=== PATIENT | female | born 1940 | race Caucasian/White ===

== ENCOUNTER 2023-01-01 06:30 | Day surgery (SDC) | payer MEDICARE ==
[2023-01-01] MEDS ORDERED: Marcaine Mpf 0.5% Vial 30 Ml ONE (07:11)
[2023-01-01] MEDS ORDERED: Xylocaine 1% Vial 30 ML PF IJ ONE (07:12)
[2023-01-01 07:56] VITALS: PULSE 60; RESP 18
[2023-01-01] MEDS ORDERED: Sodium Chloride 0.9% 1000 ML 1,000 ML ONE (07:58)
[2023-01-01] MEDS ORDERED: Sodium Chloride 0.9% 1000 ML 1,000 ML IV SCH (08:00)
[2023-01-01 08:16] LABS: Hematocrit 32.5 % (35-47); Hemoglobin 10.2 g/dL (12.0-16.0); Mean Cell Volume 87.1 fL (78-100); Mean Corpuscular Hemoglobin 27.3 pg (26-32); Mean Corpuscular Hgb Concent. 31.4 g/dL (32-36); Mean Platelet Volume 9.4 fL (7.5-11.0); Platelet Count 190 x10^3/uL (150-450); Red Blood Count 3.73 x10^6/uL (4.1-5.4); Red Cell Distribution Width 17.2 % (11.5-14.0); White Blood Count 10.9 x10^3/uL (4.0-10.5)
[2023-01-01 08:29] LABS: ALBUMIN 4.4 g/dL (3.5-5.0); ALKALINE PHOSPHATASE 81 U/L (38-126); ANION GAP 19.7 MEQ/L (5-15); BLOOD UREA NITROGEN 29 mg/dL (7-17); CHLORIDE 93 mmol/L (98-107); Calcium 9.2 mg/dL (8.4-10.2); Carbon Dioxide 23 mmol/L (22-30); Creatinine 1 0.89 mg/dL (0.52-1.04); EST GLOMERULAR FILTRATION RATE > 60.0 ML/MIN; Glucose 190 mg/dL (74-106); Potassium 4.1 mmol/L (3.5-5.1); SGOT/AST 25 U/L (14-36); SGPT/ALT 18 U/L (0-35); SODIUM 132 mmol/L (137-145)
[2023-01-01 08:31] LABS: INR 1.39 (0.8-3.0); PROTIME 14.8 SECONDS (9.4-12.5); PTT 56.4 SECONDS (25.1-36.5)
[2023-01-01] MEDS ORDERED: CEFAZOLIN 2 GM-D5W BAG** 2 GM/50 ML ML IV ONE (08:58)
[2023-01-01] MEDS ORDERED: CEFAZOLIN 2 GM-D5W BAG** 2 GM/50 ML ML IV SCH (09:00)
[2023-01-01 11:21] VITALS: O2SAT 96
[2023-01-01 11:24] VITALS: BP 152/55; TEMP 98.5
--- NOTE | 2023-01-01 11:43 | XRAY ---
Indication: Amputation right 5th toe. Intraoperative fluoroscopy provided for 5 seconds. 3 digital spot images submitted for interpretation demonstrates total amputation 5th toe. Correlate with intraoperative findings/report.
--- NOTE | 2023-01-01 14:29 | XRAY ---
5 seconds of fluoroscopy was used in surgery for an amputation of the right 5th toe.
--- NOTE | 2023-01-01 15:06 | OP ---
SURGERY DATE/TIME: 01/01/2023 0951 PREOPERATIVE DIAGNOSES: 1) Chronic osteomyelitis right fifth digit. 2) Pain right fifth of digit right foot. 3) Diabetic foot ulcer chronic. POSTOPERATIVE DIAGNOSES: 1) Chronic osteomyelitis right fifth digit. 2) Pain right fifth of digit right foot. 3) Diabetic foot ulcer chronic. PROCEDURES: Amputation of fifth digit right foot. SURGEON: Mitch Moore DPM. ABSTRACTER: None. ANESTHESIA: Local. HEMOSTASIS: Pressure dressing. ESTIMATED BLOOD LOSS: Approximately 5 cc. MATERIALS: 4-0 Monocryl, 3-0 Nylon. INJECTABLES: 20 cc of a 1:1 mixture of 1% lidocaine plain and 0.5% bupivacaine plain injected in a mini-Rios block-type fashion. INDICATION FOR SURGERY: Samantha is a very pleasant 82-year-old female very well known to my service for a diabetic foot infection and osteomyelitis. The patient was seen due to the ulceration to the inner aspect of the web space of the right foot as a result of the foot infection. MRI was obtained demonstrating some indications of osteomyelitis. Options were discussed and initially opted for IV antibiotics for an extended period of time. The patient did have some complications as a result of her medical history that resulted in interruption of her getting her PICC line and IV antibiotics for longer than five days. The patient was lost to follow up for a month and was incapacitated at that time. On follow up we decided on proceeding with the same IV antibiotics. However the patient did end up in the hospital once more as a result of it due to infection and nothing was done at that facility for the osteomyelitis. At this time the patient has had some worsening pain as a result of the osteomyelitis. Given the patient has a pacemaker, they proceeded with a bone scan which confirmed our suspicions in regards to the osteomyelitis of the fifth digit and opted to proceed with amputation. Doppler's were obtained prior to the study which demonstrated subjectively monophasic pulse to the posterior tibial and biphasic pulse to the dorsalis pedis. As a result following the amputation it has been scheduled for her to undergo an additional arterial ultrasound for objective measuring of this and if necessary referral to a vascular surgeon to increase soft tissue healing. At this time all risks, complications and benefits of surgical intervention were discussed with the patient including but not limited to infection, hematoma, seroma, possibility of delayed wound healing, nonwound healing and possible need for surgical intervention at a later date. No guarantees were provided as to the outcome of surgical intervention. It is with that we decided to proceed. DESCRIPTION OF PROCEDURE AND FINDINGS: The patient is brought into the OR and placed on the OR table in the supine position. At this time local anesthetic with mini-Rios block under aseptic technique without any complication. The right lower extremity was prepped and draped in the typical sterile fashion and lowered on the surgical field. Following this a lateral racket incision was made by the 10 blade down lateral aspect of the fifth metatarsal. The disarticulation took place at the metatarsophalangeal joint. Following this copious amounts of sterile saline with Pulsavac used to cleanse the surgical site. A total of 3 liters were used. Following this 4-0 Monocryl was utilized to coapt the subcutaneous edges in interrupted buried-type fashion and 4-0 Nylon in a horizontal mattress-type fashion was utilized to coapt the skin edges in everting-type fashion. Following this dressing consisting of Betadine, Adaptic, 4x4, Kerlix and JANE with moderate compression was applied to the right lower extremity. The patient was then returned to the postoperative anesthesia care unit with vital signs stable and vascular status intact. The patient handled the anesthesia as well as the procedure without significant complication. Postoperative orders as indicated in the patient's discharge chart.
== END 2023-01-01 11:30 | disposition home or self-care (01) ==
LOC: SDC 06:30 → EDSTATUS 12:37
PROVIDERS: ATTEND Podiatrist Foot & Ankle Surgery
DX: M86.671 Other chronic osteomyelitis, right ankle and foot (principal); M79.671 Pain in right foot; E11.621 Type 2 diabetes mellitus with foot ulcer
CPT/HCPCS: 28820; 36415; 73630; 76000; 80053; 82947; 85027; 85610; 85730; J0690; J2001

== ENCOUNTER 2023-07-07 11:44 | Emergency (ER) | payer MEDICARE ==
--- NOTE | 2023-07-07 12:14 | ERPHSYRPT ---
- History of Present Illness Time Seen by Provider: 07/07/23 12:14 Source: patient, family Exam Limitations: no limitations Physician History: This is an 82-year-old wheelchair-bound white female patient who was traveling down an exit ramp when she suddenly fell forward out of her wheelchair hitting both knees anteriorly and her forehead. She did not lose consciousness. However, family thinks maybe she was a little dazed and confused. Patient is on anticoagulation therapy. There is an abrasion to the right forehead. Patient arrives to the emergency department awake alert and oriented. Patient has a history of peripheral neuropathy, coronary artery disease (cardiac stent and pacemaker) history of arrhythmia, hyperlipidemia and hypertension. Occurred: just prior to arrival Reason for Fall: fell from height Injuries/Pain Location: head, lower extremity Loss of Consciousness: no loss of consciousness (Bilateral anterior knees), dazed Quality: aching (Bilateral anterior knees) Severity of Pain-Max: mild Severity of Pain-Current: mild Modifying Factors: Improves With: movement Associated Symptoms (Fall): denies symptoms Allergies/Adverse Reactions: [id number] Reductase Inhibitor Allergy (Verified 07/07/23 12:17) Muscle Aches Sulfa (Sulfonamide Antibiotics) Allergy (Verified 07/07/23 12:17) Hives Home Medications: Ascorbic Acid [Vitamin C] 500 mg PO DAILY 12/31/22 [History] Cholecalciferol (Vitamin D3) [Vitamin D3] 1,000 unit PO DAILY 12/31/22 [History] Cranberry Fruit Extract [Cranberry Concentrate] 500 mg PO DAILY 12/31/22 [History] Dorzolamide HCl/Pf [Dorzolamide 2% Eye Drop] 1 drop OP BID 12/31/22 [History] Ferrous Sulfate [Slow Fe] 142 mg PO DAILY 12/31/22 [History] Fish Oil/Borage/Flax/Om3,6,9 1 [Triple [place] Complex 3-6-9] 400 mg PO DAILY 12/31/22 [History] Furosemide 40 mg PO BID 12/31/22 [History] Gabapentin 600 mg PO BID 12/31/22 [History] Insulin Glargine,Hum.rec.anlog [Lantus] 22 unit SQ BID 12/31/22 [History] Insulin Lispro [Humalog] 6 unit SQ BID 12/31/22 [History] Latanoprost 2.5 ml OP DAILY 12/31/22 [History] Magnesium Oxide [Magnesium] 400 mg PO DAILY 12/31/22 [History] Metformin HCl [Metformin ER Gastric] 1,000 mg PO DAILY 12/31/22 [History] Multivitamin 1 each PO DAILY 12/31/22 [History] Nitroglycerin 0.4 mg SL Q5MIN PRN MR X 3 PRN 12/31/22 [History] Oxybutynin Chloride [Oxybutynin Chloride ER] 15 mg PO DAILY 12/31/22 [History] Potassium Citrate [Potassium] 99 mg PO DAILY 12/31/22 [History] Sitagliptin Phosphate [Januvia] 25 mg PO DAILY 12/31/22 [History] Vit C/E/Zn/Coppr/Lutein/Zeaxan [Preservision Areds 2 Chew Tab] 1 each PO DAILY 12/31/22 [History] Travel Risk - International Travel Have you traveled outside of the country in past 3 weeks: No - Coronavirus Screening Are you exhibiting any of the following symptoms?: No Close contact with a COVID-19 positive Pt in past 14-21 Days: No - Review of Systems Constitutional: No Symptoms Eyes: No Symptoms Ears, Nose, & Throat: No Symptoms Respiratory: No Symptoms Cardiac: No Symptoms Abdominal/Gastrointestinal: No Symptoms Genitourinary Symptoms: No Symptoms Musculoskeletal: Fall (Bilateral anterior knees from the height of), Injury Skin: Other ( wheelchair patient was sitting in abrasion right forehead) Neurological: No Symptoms Psychological: No Symptoms Endocrine: No Symptoms Hematologic/Lymphatic: No Symptoms Immunological/Allergic: No Symptoms All Other Systems: Reviewed and Negative - Past Medical History Pertinent Past Medical History: Yes Neurological History: Peripheral Neuropathy ENT History: Cataracts, Glaucoma, Macular Degeneration Cardiac History: Arrhythmia, High Cholesterol, Hypertension, Myocardial Infarction ([place]) Respiratory History: No Pertinent History Endocrine Medical History: Diabetes Type II Musculoskeletal History: No Pertinent History GI Medical History: No Pertinent History History: Other Psycho-Social History: No Pertinent History Female Reproductive Disorders: No Pertinent History - Past Surgical History Past Surgical History: Yes Neuro Surgical History: No Pertinent History Cardiac: Cardiac Catheterization, Cardiac Stent, Pacemaker Respiratory: No Pertinent History Gastrointestinal: Cholecystectomy Genitourinary: No Pertinent History Musculoskeletal: Joint Replacement Female Surgical History: Dilation & Curettage Other Surgical History: right knee replacement - Social History Smoking Status: Never smoker Exposure to second hand smoke: No Drug Use: none - Nursing Vital Signs Nursing Vital Signs: Initial Vital Signs Temperature 97.2 F 07/07/23 12:17 Pulse Rate 62 07/07/23 12:17 Respiratory Rate 18 07/07/23 12:17 Blood Pressure 193/66 07/07/23 12:17 O2 Sat by Pulse Oximetry 94 L 07/07/23 12:17 Pain Scale Pain Intensity 8 - Eliezer Coma Score Best Eye Response ([place]): (4) open spontaneously Best Verbal Response (Eliezer): (5) oriented Best Motor Response (Eliezer): (6) obeys commands [place] Total: 15 - Physical Exam General Appearance: no apparent distress, alert, anxiety Head Injury: tenderness Eye Exam: PERRL/EOMI, eyes nml inspection (Abrasion site right forehead) ENT Exam: airway nml, No evidence of ENT injury, No dental injury Neck Exam: supple, trachea midline, full range of motion, normal alignment, normal inspection Respiratory/Chest Exam: normal breath sounds, No chest tenderness, No respiratory distress, No ecchymosis, No crepitus Cardiovascular Exam: normal heart sounds, regular rate/rhythm Gastrointestinal Exam: soft, normal bowel sounds, No tenderness Rectal Exam: not done Back Exam: normal inspection, normal range of motion, No CVA tenderness, No vertebral tenderness Extremity Exam: normal range of motion, pelvis stable, tenderness (Anterior bilateral knees), No deformities Neurologic Exam: alert, oriented x 3, cooperative, configuration management architect II-XII nml as tested, normal mood/affect Skin Exam: abrasion SpO2 Interpretation: normal (Right side of forehead) O2 Delivery: Room Air - Course Nursing assessment & vital signs reviewed: Yes Ordered Tests: Active Orders 24 hr Category Date Time Status HEAD WITHOUT CONTRAST [CT] Stat Exams 07/07/23 13:02 Completed KNEE (1 OR 2 VIEW) Stat Exams 07/07/23 13:02 Completed KNEE (1 OR 2 VIEW) Stat Exams 07/07/23 13:03 Completed - Progress Progress: unchanged Progress Note: 07/07/23 13:51 This patient's medical issue is 1 of low to moderate complexity. Level of complexity in the workup performed is based on review of the patient's past medical history, review the patient's medication list, review the patient drug allergy list, history present illness and physical findings on examination. This patient's workup includes CT scan of the head without contrast as well as x-ray of both knees. 07/07/23 14:34 All x-rays below, were interpreted by the radiologist and I reviewed the impression: CT scan of the head shows a right frontal scalp hematoma with no underlying fracture or acute intracranial abnormalities. X-ray of the left knee shows degenerative changes without acute fracture or dislocation. X-ray of the right knee shows no acute fracture or dislocation Counseled pt/family regarding: diagnosis, need for follow-up, rad results Medical Desision Making - Independent Historian Additional History obtained from: Child - Diagnostic Testing Diagnostic test were ordered, analyzed, and reviewed by me: Yes Radiological Interpretation: Reviewed by me, Teleradiologist Report - Risk of complications Minimal Risk: Minimal risk of morbidity - Departure Departure Disposition: Home Clinical Impression: Head injury without skull fracture, Abrasion of forehead, Traumatic hematoma of forehead, Bilateral anterior knee pain Condition: Stable Critical Care Time: No Referrals: JOHN VICENTE PLATE [employer] POLISHER [Primary Care Provider] - Follow up/PCP as directed Additional Instructions: Hold your blood thinning medicine for 24 hours. Ice pack to all tender areas 3 times a day for the next 48 hours. Use Tylenol for pain control. Keep all abrasion sites clean daily with soap and water and may apply antibiotic ointment of choice twice a day. Call your primary care provider today, 07/07/2023, to make arranges for follow-up appointment for further evaluation and management.
[2023-07-07 12:29] VITALS: RESP 18; TEMP 97.2; O2SAT 94
[2023-07-07 14:01] VITALS: BP 174/74; PULSE 87
--- NOTE | 2023-07-07 14:04 | XRAY ---
Indication: Right frontal head injury following fall. Blood thinner therapy. Multiple contiguous axial images obtained through the head without contrast. Comparison: None Age-appropriate global atrophy. No acute intracranial hemorrhage, abnormal extra-axial fluid collection, or mass effect. Fourth ventricle is midline without hydrocephalus. Small right frontal scalp hematoma. Bony calvarium intact with incidental hyperostosis frontalis interna. Visualized paranasal sinuses and mastoid air cells are clear. Impression: Right frontal scalp hematoma. No underlying fracture or acute intracranial abnormalities.
--- NOTE | 2023-07-07 14:20 | XRAY ---
Indication: Pain following fall. Comparison: None AP/lateral left knee demonstrates osteopenia, minimal/mild tricompartmental degenerative changes, tiny nonspecific effusion, and moderate scattered vascular calcifications with incompletely visualized distal femoral stent. No other bony, articular, or soft tissue abnormalities.
--- NOTE | 2023-07-07 14:22 | XRAY ---
Indication: Pain following fall. Comparison: None AP/crosstable lateral right knee demonstrates total knee arthroplasty with mildly displaced supracondylar transverse fracture. Elsewhere osteopenia and moderate scattered vascular calcifications with distal femoral stent. No other bony, articular, or soft tissue abnormalities.
== END 2023-07-07 15:38 | disposition home or self-care (01) ==
LOC: ED 11:44
DX: S00.81XA Abrasion of other part of head, initial encounter (principal); S72.451A Displaced supracondylar fracture without intracondylar extension of lower end of right femur, initial encounter for closed fracture; M25.562 Pain in left knee; M25.561 Pain in right knee; W05.0XXA Fall from non-moving wheelchair, initial encounter; E11.9 Type 2 diabetes mellitus without complications; I10 Essential (primary) hypertension; Z79.899 Other long term (current) drug therapy; Z20.828 Contact with and (suspected) exposure to other viral communicable diseases
CPT/HCPCS: 70450; 73560; 99283

== ENCOUNTER 2023-07-07 19:36 | Observation (INO) | payer MEDICARE ==
--- NOTE | 2023-07-07 20:53 | ERPHSYRPT ---
- History of Present Illness Time Seen by Provider: 07/07/23 19:50 Source: patient Exam Limitations: no limitations Patient Subjective Stated Complaint: pt states she fell out of her wheelchair going down her ramp. c/o pain in bilat knees. states she was called and told to return to er for fx seen on her xray Triage Nursing Assessment: pt alert and oriented, answers questions approp. pt back to room per wheelchair and was assist of 3 from wheelchair to stretcher- pt total nwb and unable to bend knees. pt with depends on soiled with urine and stool. pt cleaned and multiple open areas noted in tunde area. open areas under abd fold- red and excoriated. abrasions to bilat knees. drs to lt foot- pt states diabetic foot ulcer. Physician History: 82-year-old female presents to emergency department. Patient was seen in our ED 2 days just prior to this visit. Patient had fallen out of her wheelchair and injured her head and knees. X-ray of the right knee revealed a supracondylar fracture. After consultation with orthopedic surgery it was determined that patient would be best served as an inpatient. Patient was asked to return back to our ED. She has done so per our request. Patient has no other complaints. Pain is well-controlled at this time. We consulted with Dr. Mckeon orthopedic surgeon on-call. He advised patient to be admitted to hospitalist and he will see patient as a consult. Plan of care discussed with patient. She agrees to admission to [facility] for further evaluation and treatment. Portions of this note were created with voice recognition technology. There may be grammatical, spelling, punctuation or sound alike errors Timing/Duration: today Severity: moderate Modifying Factors: Improves With: nothing Associated Symptoms: denies symptoms Allergies/Adverse Reactions: [id number] Reductase Inhibitor Allergy (Verified 07/07/23 20:19) Muscle Aches Sulfa (Sulfonamide Antibiotics) Allergy (Verified 07/07/23 20:19) Hives Home Medications: Ascorbic Acid [Vitamin C] 500 mg PO DAILY 12/31/22 [History] Cholecalciferol (Vitamin D3) [Vitamin D3] 1,000 unit PO DAILY 12/31/22 [History] Cranberry Fruit Extract [Cranberry Concentrate] 500 mg PO DAILY 12/31/22 [History] Dorzolamide HCl/Pf [Dorzolamide 2% Eye Drop] 1 drop OP BID 12/31/22 [History] Ferrous Sulfate [Slow Fe] 142 mg PO DAILY 12/31/22 [History] Fish Oil/Borage/Flax/Om3,6,9 1 [Triple [place] Complex 3-6-9] 400 mg PO DAILY 12/31/22 [History] Furosemide 40 mg PO BID 12/31/22 [History] Gabapentin 600 mg PO BID 12/31/22 [History] Insulin Glargine,Hum.rec.anlog [Lantus] 22 unit SQ BID 12/31/22 [History] Insulin Lispro [Humalog] 6 unit SQ BID 12/31/22 [History] Latanoprost 2.5 ml OP DAILY 12/31/22 [History] Magnesium Oxide [Magnesium] 400 mg PO DAILY 12/31/22 [History] Metformin HCl [Metformin ER Gastric] 1,000 mg PO DAILY 12/31/22 [History] Multivitamin 1 each PO DAILY 12/31/22 [History] Nitroglycerin 0.4 mg SL Q5MIN PRN MR X 3 PRN 12/31/22 [History] Oxybutynin Chloride [Oxybutynin Chloride ER] 15 mg PO DAILY 12/31/22 [History] Potassium Citrate [Potassium] 99 mg PO DAILY 12/31/22 [History] Sitagliptin Phosphate [Januvia] 25 mg PO DAILY 12/31/22 [History] Vit C/E/Zn/Coppr/Lutein/Zeaxan [Preservision Areds 2 Chew Tab] 1 each PO DAILY 12/31/22 [History] Hx Influenza Vaccination/Date Given: Yes Travel Risk - International Travel Have you traveled outside of the country in past 3 weeks: No - Coronavirus Screening Are you exhibiting any of the following symptoms?: No Close contact with a COVID-19 positive Pt in past 14-21 Days: No - Vaccine Status Have you recieved a Covid-19 vaccination: Yes Manager Salt: Moderna - Vaccination Dates Date of 2cond Vaccination (if applicable): 2020 - Review of Systems Constitutional: No Symptoms, No Fever, No Chills Eyes: No Symptoms Ears, Nose, & Throat: No Symptoms Respiratory: No Symptoms, No Cough, No Dyspnea Cardiac: No Symptoms, No Chest Pain, No Edema, No Syncope Abdominal/Gastrointestinal: No Symptoms, No Abdominal Pain, No Nausea, No Vomiting, No Diarrhea Genitourinary Symptoms: No Symptoms, No Dysuria Musculoskeletal: No Symptoms, No Back Pain, No Neck Pain Skin: No Symptoms, No Rash Neurological: No Symptoms, No Dizziness, No Focal Weakness, No Sensory Changes Psychological: No Symptoms Endocrine: No Symptoms Hematologic/Lymphatic: No Symptoms Immunological/Allergic: No Symptoms All Other Systems: Reviewed and Negative - Past Medical History Pertinent Past Medical History: Yes Neurological History: Peripheral Neuropathy ENT History: Cataracts, Glaucoma, Macular Degeneration Cardiac History: Arrhythmia, High Cholesterol, Hypertension, Myocardial Infarction ([place]) Respiratory History: No Pertinent History Endocrine Medical History: Diabetes Type II Musculoskeletal History: No Pertinent History GI Medical History: No Pertinent History History: Other Psycho-Social History: No Pertinent History Female Reproductive Disorders: No Pertinent History Other Medical History: afib - Past Surgical History Past Surgical History: Yes Neuro Surgical History: No Pertinent History Cardiac: Cardiac Catheterization, Cardiac Stent, Pacemaker Respiratory: No Pertinent History Gastrointestinal: Cholecystectomy Genitourinary: No Pertinent History Musculoskeletal: Joint Replacement Female Surgical History: Dilation & Curettage Other Surgical History: right knee replacement. return to er for fx - Social History Smoking Status: Never smoker Exposure to second hand smoke: No Drug Use: none Patient Lives Alone: No (lives with daughter) - Nursing Vital Signs Nursing Vital Signs: Initial Vital Signs Temperature 99.0 F 07/07/23 19:41 Pulse Rate 60 07/07/23 19:41 Respiratory Rate 16 07/07/23 19:41 Blood Pressure 180/76 07/07/23 19:41 O2 Sat by Pulse Oximetry 96 07/07/23 19:41 Pain Scale Pain Intensity 7 - Physical Exam General Appearance: no apparent distress, alert Eye Exam: PERRL/EOMI, eyes nml inspection Ears, Nose, Throat Exam: normal ENT inspection, moist mucous membranes Neck Exam: normal inspection, non-tender, supple, full range of motion Respiratory Exam: normal breath sounds, lungs clear, airway intact, No respiratory distress Cardiovascular Exam: regular rate/rhythm, normal heart sounds, normal peripheral pulses Gastrointestinal/Abdomen Exam: soft, normal bowel sounds, No tenderness, No mass Back Exam: normal inspection, normal range of motion, No CVA tenderness, No vertebral tenderness Extremity Exam: normal inspection, normal range of motion, pelvis stable Neurologic Exam: alert, oriented x 3, cooperative, normal mood/affect, sensation nml, No motor deficits Skin Exam: normal color, warm, dry, No rash Lymphatic Exam: No adenopathy SpO2 Interpretation: normal SpO2: 96 O2 Delivery: Room Air - Course Nursing assessment & vital signs reviewed: Yes Ordered Tests: Active Orders 24 hr Category Date Time Status CBC W DIFF Stat Lab 07/07/23 20:36 Ordered CMP Stat Lab 07/07/23 20:36 Ordered UA W/RFX UR CULTURE Stat Lab 07/07/23 20:37 Ordered Transfer Order Routine Transfer 07/07/23 Ordered - Progress Progress: improved Progress Note: 82-year-old female fell earlier in the day was seen in our ED and subsequently discharged. Patient was asked to return after consultation with orthopedic surgeon. Upon arrival to our ED patient was resting comfortably. No active pain. We placed patient's involved right knee in a knee immobilizer. Patient is to remain nonweightbearing. We called Dr. Mckeon orthopedic surgeon who advised admission to medicine service and he would see patient as a consultation. I spoke to Dr. Hodge at 8:34 PM. He requested we obtain basic labs and excepted the admission. Plan of care discussed with patient. She agrees to admission to [facility] for further evaluation and treatment. We attempted to apply a knee immobilizer however due to the degree of contracture at patient's involved knee applying a knee immobilizer was not possible. Portions of this note were created with voice recognition technology. There may be grammatical, spelling, punctuation or sound alike errors Complexity problem addressed is moderate acute complicated No critical care time Complexity of data reviewed and analyzed is extensive. Dr. Freedman independently reviewed the x-ray of the right involved knee. There is a supracondylar fracture as described. Based on patient's physical exam and the x-ray finding we decided to place patient in a right knee immobilizer. Management discussed with orthopedic surgery Dr. Mckeon and hospitalist Dr. Samano Risk of complication and a risk of morbidity/mortality of patient management is high. Patient requires hospitalization for further evaluation and treatment. Vital stable. Time spent admit patient is approximately 20 minutes. Plan of care established for shared decision making. No social determinants of health present impede follow-up. 07/07/23 20:47 Counseled pt/family regarding: lab results, diagnosis, rad results - Departure Departure Disposition: Observation Clinical Impression: Fall, Supracondylar fracture of femur Condition: Stable Critical Care Time: No Referrals: JOHN VICENTE, DRYWALL STRIPPER [Primary Care Provider] - Follow up/PCP as directed
[2023-07-07 21:18] LABS: BASOPHIL % 0.8 % (0.0-0.4); Basophil (Absolute #) 0.08 x10^3/uL (0-0.4); Eosinophil % 1.1 % (0.00-5.0); Eosinophil (Absolute #) 0.11 x10^3/uL (0-0.5); Hematocrit 30.3 % (35-47); Hemoglobin 9.6 g/dL (12.0-16.0); IMMATURE GRAN # 0.06 x10^3u/L (0.00-0.03); IMMATURE GRAN % 0.6 % (0.00-0.4); Lymphocyte (Absolute #) 1.92 x10^3/uL (1.0-4.6); Lymphocytes % 19.9 % (24.0-44.0); Mean Cell Volume 94.1 fL (78-100); Mean Corpuscular Hemoglobin 29.8 pg (26-32); Mean Corpuscular Hgb Concent. 31.7 g/dL (32-36); Mean Platelet Volume 9.4 fL (7.5-11.0); Monocytes % 7.2 % (0.0-12.0); Neutrophil % 70.4 % (36.0-66.0); Platelet Count 280 x10^3/uL (150-450); Red Blood Count 3.22 x10^6/uL (4.1-5.4); Red Cell Distribution Width 15.3 % (11.5-14.0); White Blood Count 9.7 x10^3/uL (4.0-10.5)
[2023-07-07 21:34] LABS: ALBUMIN 4.4 g/dL (3.5-5.0); BILIRUBIN,TOTAL 0.6 mg/dL (0.2-1.3); Calcium 9.5 mg/dL (8.4-10.2); Creatinine 1 0.92 mg/dL (0.52-1.04); EST GLOMERULAR FILTRATION RATE 62.2 ML/MIN; Potassium 4.8 mmol/L (3.5-5.1); Total Protein 7.9 g/dL (6.3-8.2)
[2023-07-07] MEDS ORDERED: NYSTOP POWDER 15 GM ONE (22:42)
[2023-07-07] MEDS ORDERED: TYLENOL 325 MG PO PRN (22:54)
[2023-07-07] MEDS ORDERED: HUMALOG SQ PRN (22:54)
[2023-07-07] MEDS: NYSTOP POWDER 15 GM TP SCH (23:00)
--- NOTE | 2023-07-07 23:05 | PCM.HP ---
History of Present Illness - Chief Complaint Chief Complaint: Fall, supracondylar fracture Date: 07/07/23 History of Present Illness: 82-year-old woman with a history of type 2 diabetes, A-fib, CHF, and chronically wheelchair-bound, who presents after fall. She was in her wheelchair going down a ramp when she fell face first onto her face and both knees, causing scrapes to all 3 sites. She never lost consciousness, and has only minimal soreness over her head, although both knees are painful. She has a history of a right knee replacement. She was initially seen in the ED, and was sent home, but read of the right knee x-ray showed a supracondylar fracture, and orthopedics recommended admission to the hospital for evaluation for likely surgery. Of note, patient is on Xarelto for her A-fib, with her last dose taken on July 05 in the evening. She has some mild confusion over the details of her care, which she says is chronic and her daughter helps her remember some of the details. However, otherwise she is at her baseline mental status, alert, orient ed, able to answer questions. She still has pain when trying to flex or extend her knees on both sides. - Review of Systems Constitutional: No Symptoms Respiratory: No Cough, No Short Of Breath Cardiac: No Chest Pain Neurological: No Dizziness, No Focal Weakness, No Gait Changes, No Headache All Other Systems: Reviewed and Negative Medications & Allergies Home Medications: Home Medication List Cholecalciferol (Vitamin D3) [Vitamin D3] 1,000 unit PO DAILY 12/31/22 [History Confirmed 07/07/23] Furosemide 40 mg PO BID 12/31/22 [History Confirmed 07/07/23] Gabapentin 300 mg PO DAILY 12/31/22 [History Confirmed 07/07/23] Insulin Glargine,Hum.rec.anlog [Lantus] 22 unit SQ BID 12/31/22 [History Confirmed 01/01/23] Insulin Lispro [Humalog] 6 unit SQ BID 12/31/22 [History Confirmed 01/01/23] Latanoprost 2.5 ml OP DAILY 12/31/22 [History Confirmed 01/01/23] Magnesium Oxide [Magnesium] 400 mg PO DAILY 12/31/22 [History Confirmed 07/07/23] Metformin HCl [Metformin ER Gastric] 1,000 mg PO BID 12/31/22 [History Confirmed 07/07/23] Multivitamin 1 each PO DAILY 12/31/22 [History Confirmed 07/07/23] Nitroglycerin 0.4 mg SL Q5MIN PRN MR X 3 PRN 12/31/22 [History Confirmed 07/07/23] Oxybutynin Chloride [Oxybutynin Chloride ER] 15 mg PO DAILY 12/31/22 [History Confirmed 07/07/23] Sitagliptin Phosphate [Januvia] 100 mg PO DAILY 12/31/22 [History Confirmed 07/07/23] Vit C/E/Zn/Coppr/Lutein/Zeaxan [Preservision Areds 2 Chew Tab] 1 each PO DAILY 12/31/22 [History Confirmed 07/07/23] Rivaroxaban [Xarelto] 20 mg PO HS #0 01/01/23 [Rx Confirmed 07/07/23] Calcium Carbonate/Vitamin D3 [Calcium 600 mg-Vit D3 5 Mcg Tb] 1 each PO DAILY 07/07/23 [History Confirmed 07/07/23] Cyanocobalamin (Vitamin B-12) [Vitamin B-12] 1,000 mcg PO DAILY 07/07/23 [History Confirmed 07/07/23] Duloxetine HCl 30 mg [Cymbalta 30 MG Capsule] 30 mg PO DAILY 07/07/23 [History Confirmed 07/07/23] Ferrous Sulfate [Slow Fe] 45 mg PO DAILY 07/07/23 [History Confirmed 07/07/23] Letrozole [Femara] 2.5 mg PO DAILY 07/07/23 [History Confirmed 07/07/23] Erath-3S/Dha/Epa/Fish Oil [Fish Oil Erath-3 Softgel] 1 cap PO DAILY 07/07/23 [History Confirmed 07/07/23] Potassium Chloride 20 meq PO BID 07/07/23 [History Confirmed 07/07/23] Allergies/Adverse Reactions: Allergies Allergy/AdvReac Type Severity Reaction Status Date / Time [id number] Reductase Allergy Muscle Verified 07/07/23 20:19 Inhibitor Aches Sulfa (Sulfonamide Allergy Hives Verified 07/07/23 20:19 Antibiotics) - Past Medical History Past Medical History: Yes Neurological History: Peripheral Neuropathy ENT History: Cataracts, Glaucoma, Macular Degeneration Cardiac History: Arrhythmia, High Cholesterol, Hypertension, Myocardial Infarction ([place]) Respiratory History: No Pertinent History Endocrine Medical History: Diabetes Type II Musculoskelatal History: No Pertinent History GI Medical History: No Pertinent History Pyscho-Social History: No Pertinent History Reproductive Disorders: No Pertinent History Comment: afib - Past Surgical History Past Surgical History: Yes Neuro Surgical History: No Pertinent History Cardiac History: Cardiac Catheterization, Cardiac Stent, Pacemaker Respiratory Surgery: No Pertinent History GI Surgical History: Cholecystectomy Genitourinary Surgical Hx: No Pertinent History Musculskeletal Surgical Hx: Joint Replacement Female Surgical History: Dilation & Curettage Other Surgical History: right knee replacement. return to er for fx Significant Family History: no pertinent family hx - Social History Smoking Status: Never smoker Exposure to second hand smoke: No Alcohol: None Drug Use: none - Physical Exam Vital Signs: Vital Signs - 24 hr Temp Pulse Resp BP Pulse Ox 07/07/23 21:36 56 L 16 172/75 95 07/07/23 20:55 96 07/07/23 20:30 61 16 186/68 96 07/07/23 19:41 99.0 F 60 16 180/76 96 GEN: Lying in bed in no acute distress NEURO: No focal deficits CV: Regular rate & rhythm, no murmurs, no edema PULM: Clear to auscultation bilaterally, no work of breathing, on room air ABD: Soft, non-distended, normoactive bowel sounds PSYCH: Alert, oriented x3, although got confused over some details of her medical history MSK: Abrasions over anterior surface of bilateral knees, but no joint swelling or erythema. Abrasion over forehead as well. Results - Labs Lab/Micro Results: Lab Results-Last 24 Hours 07/07/23 07/07/23 Range/Units 20:36 21:00 WBC 9.7 (4.0-10.5) x10^3/uL RBC 3.22 L (4.1-5.4) x10^6/uL Hgb 9.6 L (12.0-16.0) g/dL Hct 30.3 L (35-47) % MCV 94.1 (78-100) fL MCH 29.8 (26-32) pg MCHC 31.7 L (32-36) g/dL RDW 15.3 H (11.5-14.0) % Plt Count 280 (150-450) x10^3/uL MPV 9.4 (7.5-11.0) fL Gran % 70.4 H (36.0-66.0) % Immature Gran % (Auto) 0.6 H (0.00-0.4) % Nucleat RBC Rel Count 0.0 (0.00-0.1) % Eos # (Auto) 0.11 (0-0.5) x10^3/uL Immature Gran # (Auto) 0.06 H (0.00-0.03) x10^3u/L Absolute Lymphs (auto) 1.92 (1.0-4.6) x10^3/uL Absolute Monos (auto) 0.70 (0.0-1.3) x10^3/uL Absolute Nucleated RBC 0.00 (0.00-0.01) x10^3u/L Lymphocytes % 19.9 L (24.0-44.0) % Monocytes % 7.2 (0.0-12.0) % Eosinophils % 1.1 (0.00-5.0) % Basophils % 0.8 (0.0-0.4) % Absolute Granulocytes 6.80 (1.4-6.9) x10^3/uL Basophils # 0.08 (0-0.4) x10^3/uL Sodium 133 L (135-145) mmol/L Potassium 4.8 (3.5-5.1) mmol/L Chloride 99 (98-107) mmol/L Carbon Dioxide 22 (22-30) mmol/L Anion Gap 16.0 H (5-15) MEQ/L BUN 20 H (7-17) mg/dL Creatinine 0.92 (0.52-1.04) mg/dL Estimated GFR 62.2 ML/MIN Glucose 223 H (74-106) mg/dL Calcium 9.5 (8.4-10.2) mg/dL Total Bilirubin 0.60 (0.2-1.3) mg/dL AST 26 (14-36) U/L ALT 18 (0-35) U/L Alkaline Phosphatase 74 (38-126) U/L Serum Total Protein 7.9 (6.3-8.2) g/dL Albumin 4.4 (3.5-5.0) g/dL - Radiology Impressions Radiology Exams & Impressions: Right knee x-ray total knee arthroplasty with mildly displaced supracondylar transverse fracture Assessment/Plan (1) Supracondylar fracture of femur Current Visit: Yes Status: Acute Assessment & Plan: 82-year-old woman with a history of type 2 diabetes, A-fib, CHF, here with fall causing a right knee supracondylar fracture. ## Supracondylar fracture after a fall. No obvious bleeding into the joint or large joint effusion. Orthopedics Dr. Mckeon consulted by the ED and recommended likely surgery. Hold home Xarelto (last dose given Wednesday 07/05 Ortho consult in the morning N.p.o. after midnight in case wanting to go the OR tomorrow, but may need to wait until Wednesday because of the Xarelto timing PRN acetaminophen, and [place] for knee pain ## Type 2 diabetes at home, patient is on Lantus 22 units BID, lispro 6 units BID, Januvia 100 daily, and metformin 1000 BID. Patient will need to be n.p.o. for possible surgery. Hold home metformin and lispro Continue Lantus, but decrease to 10 units BID while n.p.o. Cover with moderate dose sliding scale insulin If started diet, will likely increase the Lantus but leave on sliding scale ## A-fib/sick sinus syndrome patient has history of pacemaker placement, but per daughter, was placed on Xarelto because of A-fib. Currently in regular rhythm on exam. Hold Xarelto for surgery above ## CHF unknown if systolic or diastolic. Currently euvolemic. Continue home Lasix 40 BID with potassium chloride 20 mill equivalents BID CODE STATUS: Full code Diet: N.p.o. for possible surgery, then diabetic Prophylaxis: Holding home Xarelto for surgery plans Code(s): S72.453A - DISPL SUPRCNDL FX W/O INTRCNDL EXTN LOW END UNSP FEMR, INIT Telemedicine Encounter - Telemedicine Encounter Telemedicine Encounter: The entirety of this encounter was performed via Telemedicine"
[2023-07-08] MEDS: NORCO 5/325 MG PO PRN (02:41)
[2023-07-08 04:54] LABS: Hematocrit 27.1 % (35-47); Hemoglobin 8.8 g/dL (12.0-16.0); Mean Cell Volume 92.2 fL (78-100); Mean Corpuscular Hemoglobin 29.9 pg (26-32); Mean Corpuscular Hgb Concent. 32.5 g/dL (32-36); Mean Platelet Volume 9.6 fL (7.5-11.0); Platelet Count 277 x10^3/uL (150-450); Red Blood Count 2.94 x10^6/uL (4.1-5.4); Red Cell Distribution Width 15.4 % (11.5-14.0); White Blood Count 8.9 x10^3/uL (4.0-10.5)
[2023-07-08 05:23] LABS: Calcium 9.2 mg/dL (8.4-10.2); Creatinine 1 0.79 mg/dL (0.52-1.04); EST GLOMERULAR FILTRATION RATE 74.6 ML/MIN; Potassium 4.1 mmol/L (3.5-5.1)
--- NOTE | 2023-07-08 05:44 | PCM.NOTE ---
Date and Time: 07/08/23 0536 Subjective Assessment: HPI: Ms. Jaramillo is an 82 year old female with a pmhx of type 2 diabetes, A-fib, CHF, and chronically wheelchair-bound, who presented to ED 07/07/23 after fall from her wheel chair going down a ramp. right knee x-ray showed a supracondylar fracture, and orthopedics recommended admission to the hospital for evaluation for likely surgery. Of note, patient is on Xarelto for her A-fib, with her last dose taken on July 05 in the evening. Objective Exam Wound Assessment: Skin/Wound Assessment Wound/Incision Assessment Start: 07/08/23 00:00 Text: Status: Active Freq: Q6H Protocol: Document 07/08/23 00:00 MP (Rec: 07/08/23 01:37 MP [id number]) Wound/Incision Assessment Right Anterior Head Wound Assessment Admission Wound Type Abrasion Anterior Abdomen Wound Assessment Admission Wound Stage Non Pressure Wound Surrounding Tissue Bright Red,Shiny,Weeping Left Knee Wound Assessment Admission Wound Type Skin Tear Right Knee Wound Assessment Admission Wound Type Skin Tear Wound Stage Non Pressure Wound Wound Photo Photo Taken Yes OBJECTIVE DATA Vital Signs: Vital Signs - 24 hr Temp Pulse Resp BP Pulse Ox 07/08/23 04:00 97.9 F 52 L 18 154/63 96 07/08/23 00:00 97.8 F 61 18 167/69 94 L 07/07/23 23:12 97.8 F 61 18 167/69 94 L 07/07/23 21:36 56 L 16 172/75 95 07/07/23 20:55 96 07/07/23 20:30 61 16 186/68 96 07/07/23 19:41 99.0 F 60 16 180/76 96 Pain Assessment - Last Documented Pain Intensity 6 Pain Scale Used 0-10 Pain Scale Intake and Output: Intake & Output 07/05/23 07/06/23 07/07/23 07/08/23 11:59 11:59 11:59 11:59 Intake Total 0 Balance 0 Weight 72.8 kg Lab Results: Lab Results-Last 24 Hours 07/07/23 07/07/23 07/08/23 Range/Units 20:36 21:00 04:36 WBC 9.7 8.9 (4.0-10.5) x10^3/uL RBC 3.22 L 2.94 L (4.1-5.4) x10^6/uL Hgb 9.6 L 8.8 L (12.0-16.0) g/dL Hct 30.3 L 27.1 L (35-47) % MCV 94.1 92.2 (78-100) fL MCH 29.8 29.9 (26-32) pg MCHC 31.7 L 32.5 (32-36) g/dL RDW 15.3 H 15.4 H (11.5-14.0) % Plt Count 280 277 (150-450) x10^3/uL MPV 9.4 9.6 (7.5-11.0) fL Gran % 70.4 H (36.0-66.0) % Immature Gran % (Auto) 0.6 H (0.00-0.4) % Nucleat RBC Rel Count 0.0 (0.00-0.1) % Eos # (Auto) 0.11 (0-0.5) x10^3/uL Immature Gran # (Auto) 0.06 H (0.00-0.03) x10^3u/L Absolute Lymphs (auto) 1.92 (1.0-4.6) x10^3/uL Absolute Monos (auto) 0.70 (0.0-1.3) x10^3/uL Absolute Nucleated RBC 0.00 (0.00-0.01) x10^3u/L Lymphocytes % 19.9 L (24.0-44.0) % Monocytes % 7.2 (0.0-12.0) % Eosinophils % 1.1 (0.00-5.0) % Basophils % 0.8 (0.0-0.4) % Absolute Granulocytes 6.80 (1.4-6.9) x10^3/uL Basophils # 0.08 (0-0.4) x10^3/uL Sodium 133 L (135-145) mmol/L Potassium 4.8 (3.5-5.1) mmol/L Chloride 99 (98-107) mmol/L Carbon Dioxide 22 (22-30) mmol/L Anion Gap 16.0 H (5-15) MEQ/L BUN 20 H (7-17) mg/dL Creatinine 0.92 (0.52-1.04) mg/dL Estimated GFR 62.2 ML/MIN Glucose 223 H (74-106) mg/dL Calcium 9.5 (8.4-10.2) mg/dL Total Bilirubin 0.60 (0.2-1.3) mg/dL AST 26 (14-36) U/L ALT 18 (0-35) U/L Alkaline Phosphatase 74 (38-126) U/L Serum Total Protein 7.9 (6.3-8.2) g/dL Albumin 4.4 (3.5-5.0) g/dL Prealbumin (17.6-36.0) mg/dL 07/08/23 07/08/23 Range/Units 04:36 04:36 WBC (4.0-10.5) x10^3/uL RBC (4.1-5.4) x10^6/uL Hgb (12.0-16.0) g/dL Hct (35-47) % MCV (78-100) fL MCH (26-32) pg MCHC (32-36) g/dL RDW (11.5-14.0) % Plt Count (150-450) x10^3/uL MPV (7.5-11.0) fL Gran % (36.0-66.0) % Immature Gran % (Auto) (0.00-0.4) % Nucleat RBC Rel Count (0.00-0.1) % Eos # (Auto) (0-0.5) x10^3/uL Immature Gran # (Auto) (0.00-0.03) x10^3u/L Absolute Lymphs (auto) (1.0-4.6) x10^3/uL Absolute Monos (auto) (0.0-1.3) x10^3/uL Absolute Nucleated RBC (0.00-0.01) x10^3u/L Lymphocytes % (24.0-44.0) % Monocytes % (0.0-12.0) % Eosinophils % (0.00-5.0) % Basophils % (0.0-0.4) % Absolute Granulocytes (1.4-6.9) x10^3/uL Basophils # (0-0.4) x10^3/uL Sodium 131 L (135-145) mmol/L Potassium 4.1 (3.5-5.1) mmol/L Chloride 101 (98-107) mmol/L Carbon Dioxide 20 L (22-30) mmol/L Anion Gap 15.0 (5-15) MEQ/L BUN 16 (7-17) mg/dL Creatinine 0.79 (0.52-1.04) mg/dL Estimated GFR 74.6 ML/MIN Glucose 163 H (74-106) mg/dL Calcium 9.2 (8.4-10.2) mg/dL Total Bilirubin (0.2-1.3) mg/dL AST (14-36) U/L ALT (0-35) U/L Alkaline Phosphatase (38-126) U/L Serum Total Protein (6.3-8.2) g/dL Albumin (3.5-5.0) g/dL Prealbumin 18.82 (17.6-36.0) mg/dL Assessment/Plan (1) Supracondylar fracture of femur Current Visit: Yes Status: Acute Assessment & Plan: -Xarelto on hold (last does 07/05) for surgery -Dr. Mckeon consulted with recs for surgery N.p.o. after midnight -pending ortho recs for surgery as Xarelto may be a factor on when pt has surgery PRN acetaminophen, and [place] for knee pain -Monitor H&H as patient is a risk for bleed due to xarelto/fracture, stable today at 8.8 Code(s): S72.453A - DISPL SUPRCNDL FX W/O INTRCNDL EXTN LOW END UNSP FEMR, INIT (2) Diabetes mellitus Current Visit: Yes Status: Acute Qualifiers: Diabetes mellitus type: type 2 Assessment & Plan: NPO for surgery Hold home metformin and lispro for now Continue Lantus, but decrease to 10 units BID while n.p.o. SSI/glargine once diet resumed -monitor and adjust as appropriate -a1c Code(s): E11.9 - TYPE 2 DIABETES MELLITUS WITHOUT COMPLICATIONS (3) Afib Current Visit: Yes Status: Acute Assessment & Plan: -Pacemaker -Xarelto on hold for surgery -Monitor on Tele Code(s): I48.91 - UNSPECIFIED ATRIAL FIBRILLATION (4) CHF (congestive heart failure) Current Visit: Yes Status: Acute Assessment & Plan: -Does not appear to be in exacerbation -Continue home medications lasix/potassium CODE STATUS: Full code Diet: N.p.o. for possible surgery, then diabetic Prophylaxis: Holding home Xarelto for surgery plans Code(s): I50.9 - HEART FAILURE, UNSPECIFIED (5) Fall Current Visit: Yes Status: Acute Code(s): W19.XXXA - UNSPECIFIED FALL, INITIAL ENCOUNTER (6) Hyponatremia Current Visit: Yes Status: Acute Assessment & Plan: -mild at 131 Code(s): E87.1 - HYPO-OSMOLALITY AND HYPONATREMIA
[2023-07-08] MEDS ORDERED: MEDICATION INTERVENTION MC SCH (07:15)
[2023-07-08 08:24] VITALS: RESP 16
[2023-07-08] MEDS ORDERED: NON-FORMULARY ITEM (Cyanocobalamin (Vitamin B-12) [Vitamin B-12] 1,000 MCG Capsule) PO SCH (10:00)
[2023-07-08] MEDS ORDERED: FERROUS SULFATE PO SCH (10:00)
[2023-07-08] MEDS ORDERED: NON-FORMULARY ITEM (Cholecalciferol (Vitamin D3) [Vitamin D3] 25 MCG Capsule) PO SCH (10:00)
[2023-07-08] MEDS ORDERED: NON-FORMULARY ITEM (Potassium Chloride [Potassium Chloride] 20 MEQ/15 ML Liquid) PO SCH (10:00)
[2023-07-08] MEDS ORDERED: NON-FORMULARY ITEM (Gabapentin [Gabapentin] 600 MG Tablet) PO SCH (10:00)
[2023-07-08] MEDS ORDERED: NON-FORMULARY ITEM (Oxybutynin Chloride [Oxybutynin Chloride Er] 15 MG Tab.Er.24) PO SCH (10:00)
[2023-07-08] MEDS ORDERED: [UNRECOGNIZED DRUG - OTHER] PO SCH (10:00)
--- NOTE | 2023-07-08 10:20 | XRAY ---
Indication: Pain. Comparison: One day earlier Single portable lateral right knee unchanged again demonstrating mildly displaced/angulated supracondylar fracture, osteopenia, intact total knee arthroplasty, and scattered vascular calcifications with distal femoral artery stent.
--- NOTE | 2023-07-08 11:27 | PCM.CONS ---
HPI - Consult Date of Consultation Date: 07/08/23 Consulting Provider: GERDA SANTOS MD - [facility] History of Present Illness: is a 82 year old female with right knee pain.She is essentially nonambulatory, is wheelchair-bound for about 1 year. She lives at home with her daughter. Her daughter brings her into the liability analyst twice a week in a wheelchair. She had a fall at home yesterday injuring her right knee and was brought to the emergency room. She was initially sent back home but then the ER physician received x-ray readings indicating distal femur fracture. The case was discussed on the telephone and the patient was brought back to the hospital for admission and evaluated today. The daughter states that the patient was ambulatory until about 1 year ago when she was hospitalized with pneumonia, after that time she never resumed a mbulation. The patient has multiple medical problems and is an active, has had prior right total knee replacement. Medications & Allergies Home Medications: Home Medication List Cholecalciferol (Vitamin D3) [Vitamin D3] 1,000 unit PO DAILY 12/31/22 [History Confirmed 07/07/23] Furosemide 40 mg PO BID 12/31/22 [History Confirmed 07/07/23] Gabapentin 300 mg PO DAILY 12/31/22 [History Confirmed 07/07/23] Insulin Glargine,Hum.rec.anlog [Lantus] 22 unit SQ BID 12/31/22 [History Confirmed 01/01/23] Insulin Lispro [Humalog] 6 unit SQ BID 12/31/22 [History Confirmed 01/01/23] Latanoprost 2.5 ml OP DAILY 12/31/22 [History Confirmed 01/01/23] Magnesium Oxide [Magnesium] 400 mg PO DAILY 12/31/22 [History Confirmed 07/07/23] Metformin HCl [Metformin ER Gastric] 1,000 mg PO BID 12/31/22 [History Confirmed 07/07/23] Multivitamin 1 each PO DAILY 12/31/22 [History Confirmed 07/07/23] Nitroglycerin 0.4 mg SL Q5MIN PRN MR X 3 PRN 12/31/22 [History Confirmed 0 07/07/23] Oxybutynin Chloride [Oxybutynin Chloride ER] 15 mg PO DAILY 12/31/22 [History Confirmed 07/07/23] Sitagliptin Phosphate [Januvia] 100 mg PO DAILY 12/31/22 [History Confirmed 07/07/23] Vit C/E/Zn/Coppr/Lutein/Zeaxan [Preservision Areds 2 Chew Tab] 1 each PO DAILY 12/31/22 [History Confirmed 07/07/23] Rivaroxaban [Xarelto] 20 mg PO HS #0 01/01/23 [Rx Confirmed 07/07/23] Calcium Carbonate/Vitamin D3 [Calcium 600 mg-Vit D3 5 Mcg Tb] 1 each PO DAILY 07/07/23 [History Confirmed 07/07/23] Cyanocobalamin (Vitamin B-12) [Vitamin B-12] 1,000 mcg PO DAILY 07/07/23 [History Confirmed 07/07/23] Duloxetine HCl 30 mg [Cymbalta 30 MG Capsule] 30 mg PO DAILY 07/07/23 [History Confirmed 07/07/23] Ferrous Sulfate [Slow Fe] 45 mg PO DAILY 07/07/23 [History Confirmed 07/07/23] Letrozole [Femara] 2.5 mg PO DAILY 07/07/23 [History Confirmed 07/07/23] [place]-3S/Dha/Epa/Fish Oil [Fish Oil [place]-3 Softgel] 1 cap PO DAILY 07/07/23 [History Confirmed 07/07/23] Potassium Chloride 20 meq PO BID 07/07/23 [History Confirmed 07/07/23] Allergies/Adverse Reactions: Allergies Allergy/AdvReac Type Severity Reaction Status Date / Time Oxpoigf-HIP-DaH Reductase Allergy Muscle Verified 07/07/23 20:19 Inhibitor Aches Sulfa (Sulfonamide Allergy Hives Verified 07/07/23 20:19 Antibiotics) - Past Medical History Past Medical History: Yes Neurological History: Peripheral Neuropathy ENT History: Cataracts, Glaucoma, Macular Degeneration Cardiac History: Arrhythmia, High Cholesterol, Hypertension, Myocardial Infarction ([place]) Respiratory History: No Pertinent History Endocrine Medical History: Diabetes Type II Musculoskelatal History: No Pertinent History GI Medical History: No Pertinent History History: Other Pyscho-Social History: No Pertinent History Reproductive Disorders: No Pertinent History Comment: afib - Female History Are you now?: No - Past Surgical History Past Surgical History: Yes Neuro Surgical History: No Pertinent History Cardiac History: Cardiac Catheterization, Cardiac Stent, Pacemaker Respiratory Surgery: No Pertinent History GI Surgical History: Cholecystectomy Genitourinary Surgical Hx: No Pertinent History Musculskeletal Surgical Hx: Joint Replacement Female Surgical History: Dilation & Curettage Other Surgical History: right knee replacement. return to er for fx Significant Family History: no pertinent family hx - Social History Smoking Status: Never smoker Exposure to second hand smoke: No Alcohol: None Drug Use: none - Social Determinants of Health Will the patient participate in the screening: Yes Do you worry about a steady place to live?: No Do you have any problems with any of the following?: No known problems In the past 12 months,have you had to go without utilities?: No Have you or anyone in your house had to go without enough: No Transportation Issues: No Has anyone in your support network made you feel unsafe?: No Does the patient want assistance with any of the above?: No - Physical Exam SpO2: 94 - Upper Extremity Shoulder Exam: normal inspection Elbow/Forearm Exam: normal inspection - Lower Extremity Hips: right: bone tenderness, deformity, pain, other (Surgical scar anterior right knee), bilateral: limited range of motion Knees: right knee: bone tenderness, joint effusion, pain, swelling - Narrative Narrative Physical Exam: Ortho Physical Exam OBJECTIVE DATA Vital Signs: Vital Signs - 24 hr Temp Pulse Resp BP Pulse Ox 07/08/23 08:00 98.1 F 64 16 153/60 94 L 07/08/23 04:00 97.9 F 52 L 18 154/63 96 07/08/23 00:00 97.8 F 61 18 167/69 94 L 07/07/23 23:12 97.8 F 61 18 167/69 94 L 07/07/23 21:36 56 L 16 172/75 95 07/07/23 20:55 96 07/07/23 20:30 61 16 186/68 96 07/07/23 19:41 99.0 F 60 16 180/76 96 Pain Assessment - Last Documented Pain Intensity 5 Pain Scale Used 0-10 Pain Scale Intake and Output: Intake & Output 07/05/23 07/06/23 07/07/23 07/08/23 11:59 11:59 11:59 11:59 Intake Total 0 Balance 0 Weight 72.8 kg Lab Results: Lab Results-Last 24 Hours 07/07/23 07/07/23 07/08/23 Range/Units 20:36 21:00 04:36 WBC 9.7 8.9 (4.0-10.5) x10^3/uL RBC 3.22 L 2.94 L (4.1-5.4) x10^6/uL Hgb 9.6 L 8.8 L (12.0-16.0) g/dL Hct 30.3 L 27.1 L (35-47) % MCV 94.1 92.2 (78-100) fL MCH 29.8 29.9 (26-32) pg MCHC 31.7 L 32.5 (32-36) g/dL RDW 15.3 H 15.4 H (11.5-14.0) % Plt Count 280 277 (150-450) x10^3/uL MPV 9.4 9.6 (7.5-11.0) fL Gran % 70.4 H (36.0-66.0) % Immature Gran % (Auto) 0.6 H (0.00-0.4) % Nucleat RBC Rel Count 0.0 (0.00-0.1) % Eos # (Auto) 0.11 (0-0.5) x10^3/uL Immature Gran # (Auto) 0.06 H (0.00-0.03) x10^3u/L Absolute Lymphs (auto) 1.92 (1.0-4.6) x10^3/uL Absolute Monos (auto) 0.70 (0.0-1.3) x10^3/uL Absolute Nucleated RBC 0.00 (0.00-0.01) x10^3u/L Lymphocytes % 19.9 L (24.0-44.0) % Monocytes % 7.2 (0.0-12.0) % Eosinophils % 1.1 (0.00-5.0) % Basophils % 0.8 (0.0-0.4) % Absolute Granulocytes 6.80 (1.4-6.9) x10^3/uL Basophils # 0.08 (0-0.4) x10^3/uL Sodium 133 L (135-145) mmol/L Potassium 4.8 (3.5-5.1) mmol/L Chloride 99 (98-107) mmol/L Carbon Dioxide 22 (22-30) mmol/L Anion Gap 16.0 H (5-15) MEQ/L BUN 20 H (7-17) mg/dL Creatinine 0.92 (0.52-1.04) mg/dL Estimated GFR 62.2 ML/MIN Glucose 223 H (74-106) mg/dL POC Glucometer (74 to 106) mg/dL Hemoglobin A1c (4.5-6.0) % Calcium 9.5 (8.4-10.2) mg/dL Total Bilirubin 0.60 (0.2-1.3) mg/dL AST 26 (14-36) U/L ALT 18 (0-35) U/L Alkaline Phosphatase 74 (38-126) U/L Serum Total Protein 7.9 (6.3-8.2) g/dL Albumin 4.4 (3.5-5.0) g/dL Prealbumin (17.6-36.0) mg/dL 07/08/23 07/08/23 07/08/23 Range/Units 04:36 04:36 04:36 WBC (4.0-10.5) x10^3/uL RBC (4.1-5.4) x10^6/uL Hgb (12.0-16.0) g/dL Hct (35-47) % MCV (78-100) fL MCH (26-32) pg MCHC (32-36) g/dL RDW (11.5-14.0) % Plt Count (150-450) x10^3/uL MPV (7.5-11.0) fL Gran % (36.0-66.0) % Immature Gran % (Auto) (0.00-0.4) % Nucleat RBC Rel Count (0.00-0.1) % Eos # (Auto) (0-0.5) x10^3/uL Immature Gran # (Auto) (0.00-0.03) x10^3u/L Absolute Lymphs (auto) (1.0-4.6) x10^3/uL Absolute Monos (auto) (0.0-1.3) x10^3/uL Absolute Nucleated RBC (0.00-0.01) x10^3u/L Lymphocytes % (24.0-44.0) % Monocytes % (0.0-12.0) % Eosinophils % (0.00-5.0) % Basophils % (0.0-0.4) % Absolute Granulocytes (1.4-6.9) x10^3/uL Basophils # (0-0.4) x10^3/uL Sodium 131 L (135-145) mmol/L Potassium 4.1 (3.5-5.1) mmol/L Chloride 101 (98-107) mmol/L Carbon Dioxide 20 L (22-30) mmol/L Anion Gap 15.0 (5-15) MEQ/L BUN 16 (7-17) mg/dL Creatinine 0.79 (0.52-1.04) mg/dL Estimated GFR 74.6 ML/MIN Glucose 163 H (74-106) mg/dL POC Glucometer (74 to 106) mg/dL Hemoglobin A1c 6.86 H (4.5-6.0) % Calcium 9.2 (8.4-10.2) mg/dL Total Bilirubin (0.2-1.3) mg/dL AST (14-36) U/L ALT (0-35) U/L Alkaline Phosphatase (38-126) U/L Serum Total Protein (6.3-8.2) g/dL Albumin (3.5-5.0) g/dL Prealbumin 18.82 (17.6-36.0) mg/dL 07/08/23 Range/Units 07:57 WBC (4.0-10.5) x10^3/uL RBC (4.1-5.4) x10^6/uL Hgb (12.0-16.0) g/dL Hct (35-47) % MCV (78-100) fL MCH (26-32) pg MCHC (32-36) g/dL RDW (11.5-14.0) % Plt Count (150-450) x10^3/uL MPV (7.5-11.0) fL Gran % (36.0-66.0) % Immature Gran % (Auto) (0.00-0.4) % Nucleat RBC Rel Count (0.00-0.1) % Eos # (Auto) (0-0.5) x10^3/uL Immature Gran # (Auto) (0.00-0.03) x10^3u/L Absolute Lymphs (auto) (1.0-4.6) x10^3/uL Absolute Monos (auto) (0.0-1.3) x10^3/uL Absolute Nucleated RBC (0.00-0.01) x10^3u/L Lymphocytes % (24.0-44.0) % Monocytes % (0.0-12.0) % Eosinophils % (0.00-5.0) % Basophils % (0.0-0.4) % Absolute Granulocytes (1.4-6.9) x10^3/uL Basophils # (0-0.4) x10^3/uL Sodium (135-145) mmol/L Potassium (3.5-5.1) mmol/L Chloride (98-107) mmol/L Carbon Dioxide (22-30) mmol/L Anion Gap (5-15) MEQ/L BUN (7-17) mg/dL Creatinine (0.52-1.04) mg/dL Estimated GFR ML/MIN Glucose (74-106) mg/dL POC Glucometer 151 H (74 to 106) mg/dL Hemoglobin A1c (4.5-6.0) % Calcium (8.4-10.2) mg/dL Total Bilirubin (0.2-1.3) mg/dL AST (14-36) U/L ALT (0-35) U/L Alkaline Phosphatase (38-126) U/L Serum Total Protein (6.3-8.2) g/dL Albumin (3.5-5.0) g/dL Prealbumin (17.6-36.0) mg/dL Radiology Exams: Radiology Procedures Category Date Time Status KNEE (1 OR 2 VIEW) Stat Exams 07/08/23 09:15 Completed X-rays right knee reviewed, additional lateral view obtained today. Patient has transverse supracondylar fracture right distal femur, prior right total knee arthroplasty. There is posterior displacement, severe osteopenia Results - Labs Lab/Micro Results: Lab Results-Last 24 Hours 07/07/23 07/07/23 07/08/23 Range/Units 20:36 21:00 04:36 WBC 9.7 8.9 (4.0-10.5) x10^3/uL RBC 3.22 L 2.94 L (4.1-5.4) x10^6/uL Hgb 9.6 L 8.8 L (12.0-16.0) g/dL Hct 30.3 L 27.1 L (35-47) % MCV 94.1 92.2 (78-100) fL MCH 29.8 29.9 (26-32) pg MCHC 31.7 L 32.5 (32-36) g/dL RDW 15.3 H 15.4 H (11.5-14.0) % Plt Count 280 277 (150-450) x10^3/uL MPV 9.4 9.6 (7.5-11.0) fL Gran % 70.4 H (36.0-66.0) % Immature Gran % (Auto) 0.6 H (0.00-0.4) % Nucleat RBC Rel Count 0.0 (0.00-0.1) % Eos # (Auto) 0.11 (0-0.5) x10^3/uL Immature Gran # (Auto) 0.06 H (0.00-0.03) x10^3u/L Absolute Lymphs (auto) 1.92 (1.0-4.6) x10^3/uL Absolute Monos (auto) 0.70 (0.0-1.3) x10^3/uL Absolute Nucleated RBC 0.00 (0.00-0.01) x10^3u/L Lymphocytes % 19.9 L (24.0-44.0) % Monocytes % 7.2 (0.0-12.0) % Eosinophils % 1.1 (0.00-5.0) % Basophils % 0.8 (0.0-0.4) % Absolute Granulocytes 6.80 (1.4-6.9) x10^3/uL Basophils # 0.08 (0-0.4) x10^3/uL Sodium 133 L (135-145) mmol/L Potassium 4.8 (3.5-5.1) mmol/L Chloride 99 (98-107) mmol/L Carbon Dioxide 22 (22-30) mmol/L Anion Gap 16.0 H (5-15) MEQ/L BUN 20 H (7-17) mg/dL Creatinine 0.92 (0.52-1.04) mg/dL Estimated GFR 62.2 ML/MIN Glucose 223 H (74-106) mg/dL POC Glucometer (74 to 106) mg/dL Hemoglobin A1c (4.5-6.0) % Calcium 9.5 (8.4-10.2) mg/dL Total Bilirubin 0.60 (0.2-1.3) mg/dL AST 26 (14-36) U/L ALT 18 (0-35) U/L Alkaline Phosphatase 74 (38-126) U/L Serum Total Protein 7.9 (6.3-8.2) g/dL Albumin 4.4 (3.5-5.0) g/dL Prealbumin (17.6-36.0) mg/dL 07/08/23 07/08/23 07/08/23 Range/Units 04:36 04:36 04:36 WBC (4.0-10.5) x10^3/uL RBC (4.1-5.4) x10^6/uL Hgb (12.0-16.0) g/dL Hct (35-47) % MCV (78-100) fL MCH (26-32) pg MCHC (32-36) g/dL RDW (11.5-14.0) % Plt Count (150-450) x10^3/uL MPV (7.5-11.0) fL Gran % (36.0-66.0) % Immature Gran % (Auto) (0.00-0.4) % Nucleat RBC Rel Count (0.00-0.1) % Eos # (Auto) (0-0.5) x10^3/uL Immature Gran # (Auto) (0.00-0.03) x10^3u/L Absolute Lymphs (auto) (1.0-4.6) x10^3/uL Absolute Monos (auto) (0.0-1.3) x10^3/uL Absolute Nucleated RBC (0.00-0.01) x10^3u/L Lymphocytes % (24.0-44.0) % Monocytes % (0.0-12.0) % Eosinophils % (0.00-5.0) % Basophils % (0.0-0.4) % Absolute Granulocytes (1.4-6.9) x10^3/uL Basophils # (0-0.4) x10^3/uL Sodium 131 L (135-145) mmol/L Potassium 4.1 (3.5-5.1) mmol/L Chloride 101 (98-107) mmol/L Carbon Dioxide 20 L (22-30) mmol/L Anion Gap 15.0 (5-15) MEQ/L BUN 16 (7-17) mg/dL Creatinine 0.79 (0.52-1.04) mg/dL Estimated GFR 74.6 ML/MIN Glucose 163 H (74-106) mg/dL POC Glucometer (74 to 106) mg/dL Hemoglobin A1c 6.86 H (4.5-6.0) % Calcium 9.2 (8.4-10.2) mg/dL Total Bilirubin (0.2-1.3) mg/dL AST (14-36) U/L ALT (0-35) U/L Alkaline Phosphatase (38-126) U/L Serum Total Protein (6.3-8.2) g/dL Albumin (3.5-5.0) g/dL Prealbumin 18.82 (17.6-36.0) mg/dL 07/08/23 Range/Units 07:57 WBC (4.0-10.5) x10^3/uL RBC (4.1-5.4) x10^6/uL Hgb (12.0-16.0) g/dL Hct (35-47) % MCV (78-100) fL MCH (26-32) pg MCHC (32-36) g/dL RDW (11.5-14.0) % Plt Count (150-450) x10^3/uL MPV (7.5-11.0) fL Gran % (36.0-66.0) % Immature Gran % (Auto) (0.00-0.4) % Nucleat RBC Rel Count (0.00-0.1) % Eos # (Auto) (0-0.5) x10^3/uL Immature Gran # (Auto) (0.00-0.03) x10^3u/L Absolute Lymphs (auto) (1.0-4.6) x10^3/uL Absolute Monos (auto) (0.0-1.3) x10^3/uL Absolute Nucleated RBC (0.00-0.01) x10^3u/L Lymphocytes % (24.0-44.0) % Monocytes % (0.0-12.0) % Eosinophils % (0.00-5.0) % Basophils % (0.0-0.4) % Absolute Granulocytes (1.4-6.9) x10^3/uL Basophils # (0-0.4) x10^3/uL Sodium (135-145) mmol/L Potassium (3.5-5.1) mmol/L Chloride (98-107) mmol/L Carbon Dioxide (22-30) mmol/L Anion Gap (5-15) MEQ/L BUN (7-17) mg/dL Creatinine (0.52-1.04) mg/dL Estimated GFR ML/MIN Glucose (74-106) mg/dL POC Glucometer 151 H (74 to 106) mg/dL Hemoglobin A1c (4.5-6.0) % Calcium (8.4-10.2) mg/dL Total Bilirubin (0.2-1.3) mg/dL AST (14-36) U/L ALT (0-35) U/L Alkaline Phosphatase (38-126) U/L Serum Total Protein (6.3-8.2) g/dL Albumin (3.5-5.0) g/dL Prealbumin (17.6-36.0) mg/dL Accuchecks Date 07/08/23 - Radiology Impressions Radiology Exams & Impressions: Radiology Procedures Category Date Time Status KNEE (1 OR 2 VIEW) Stat Exams 07/08/23 09:15 Completed Assessment/Plan (1) Closed supracondylar fracture of right femur Current Visit: Yes Status: Acute Qualifiers: Encounter type: initial encounter Qualified Code(s): S72.451A - Displaced supracondylar fracture without intracondylar extension of lower end of right femur, initial encounter for closed fracture Code(s): S72.451A - DISPL SUPRCNDL FX W/O INTRCNDL EXTN LOWER END R FEMUR, INIT
--- NOTE | 2023-07-08 12:20 | PCM.DS ---
Discharge Summary Date of Admission: 07/07/23 22:24 Date of Discharge: 07/08/23 Admitting Physician: JOSEPH ZAVALA MD Consults: Consults on Case 07/07/23 22:24 Consult Ortho ROUTINE Primary Care Provider: JOHN VICENTE NP Allergies Allergies Nbfvrhd-[id number]-GdK Reductase Inhibitor Allergy (Verified 07/07/23 20:19) Muscle Aches Sulfa (Sulfonamide Antibiotics) Allergy (Verified 07/07/23 20:19) [facility] Summary - Hospital Course Hospital Course: Ms. Jaramillo is an 82 year old female with a pmhx of type 2 diabetes, A-fib, CHF, and chronically wheelchair-bound, who presented to ED 07/07/23 after fall from her wheel chair going down a ramp. Patient admitted with xrays showing transverse supracondylar fracture right distal femur, prior right total knee arthroplasty. There is posterior displacement, severe osteopenia. Of note, patient is on Xarelto for her A-fib, with her last dose taken on July 05 in the evening. Ortho consulted, patient will need surgical intervention with cardiac clearance, recommendations to transfer patient to higher level of care to obtain. Discharge Note Latest Assessment & Plan (1) Supracondylar fracture of femur Current Visit: Yes Status: Acute Assessment & Plan: -Xarelto on hold (last does 07/05) for surgery -Dr. Mckeon consulted with recs for transfer to [place] for surgery PRN acetaminophen, and [place] for knee pain -Monitor H&H as patient is a risk for bleed due to xarelto/fracture, stable today at 8.8 Code(s): S72.453A - DISPL SUPRCNDL FX W/O INTRCNDL EXTN LOW END UNSP FEMR, INIT (2) Diabetes mellitus Current Visit: Yes Status: Acute Qualifiers: Diabetes mellitus type: type 2 Assessment & Plan: Hold home metformin and lispro for now Continue Lantus, but decrease to 10 units BID while n.p.o. SSI/glargine once diet resumed -monitor and adjust as appropriate -a1c Code(s): E11.9 - TYPE 2 DIABETES MELLITUS WITHOUT COMPLICATIONS (3) Afib Current Visit: Yes Status: Acute Assessment & Plan: -Pacemaker -Xarelto on hold for surgery -Monitor on Tele Code(s): I48.91 - UNSPECIFIED ATRIAL FIBRILLATION (4) CHF (congestive heart failure) Current Visit: Yes Status: Acute Assessment & Plan: -Does not appear to be in exacerbation -Continue home medications lasix/potassium I spent 35 minutes aegr-lf-helm with the patient on the day of discharge performing discharge exam, discussing hospital stay and discharge instructions with patient and caregivers, preparation of discharge records, prescriptions & referral forms and addressing any questions/concerns the patient had as documented above. - Vitals & Intake/Output Vital Signs: Vital Signs Temperature 98.1 F 07/08/23 08:00 Pulse Rate 64 07/08/23 08:00 Respiratory Rate 16 07/08/23 08:00 Blood Pressure 153/60 07/08/23 08:00 O2 Sat by Pulse Oximetry 94 L 07/08/23 11:30 Intake & Output: Intake & Output 07/06/23 07/07/23 07/08/23 07/09/23 11:59 11:59 11:59 11:59 Intake Total 0 Balance 0 Weight 72.8 kg - Lab Result Diagrams: 07/08/23 04:36 07/08/23 04:36 Lab Results-Last 24 Hrs: Lab Results-Last 24 Hours 07/07/23 07/07/23 07/08/23 Range/Units 20:36 21:00 04:36 WBC 9.7 8.9 (4.0-10.5) x10^3/uL RBC 3.22 L 2.94 L (4.1-5.4) x10^6/uL Hgb 9.6 L 8.8 L (12.0-16.0) g/dL Hct 30.3 L 27.1 L (35-47) % MCV 94.1 92.2 (78-100) fL MCH 29.8 29.9 (26-32) pg MCHC 31.7 L 32.5 (32-36) g/dL RDW 15.3 H 15.4 H (11.5-14.0) % Plt Count 280 277 (150-450) x10^3/uL MPV 9.4 9.6 (7.5-11.0) fL Gran % 70.4 H (36.0-66.0) % Immature Gran % (Auto) 0.6 H (0.00-0.4) % Nucleat RBC Rel Count 0.0 (0.00-0.1) % Eos # (Auto) 0.11 (0-0.5) x10^3/uL Immature Gran # (Auto) 0.06 H (0.00-0.03) x10^3u/L Absolute Lymphs (auto) 1.92 (1.0-4.6) x10^3/uL Absolute Monos (auto) 0.70 (0.0-1.3) x10^3/uL Absolute Nucleated RBC 0.00 (0.00-0.01) x10^3u/L Lymphocytes % 19.9 L (24.0-44.0) % Monocytes % 7.2 (0.0-12.0) % Eosinophils % 1.1 (0.00-5.0) % Basophils % 0.8 (0.0-0.4) % Absolute Granulocytes 6.80 (1.4-6.9) x10^3/uL Basophils # 0.08 (0-0.4) x10^3/uL Sodium 133 L (135-145) mmol/L Potassium 4.8 (3.5-5.1) mmol/L Chloride 99 (98-107) mmol/L Carbon Dioxide 22 (22-30) mmol/L Anion Gap 16.0 H (5-15) MEQ/L BUN 20 H (7-17) mg/dL Creatinine 0.92 (0.52-1.04) mg/dL Estimated GFR 62.2 ML/MIN Glucose 223 H (74-106) mg/dL POC Glucometer (74 to 106) mg/dL Hemoglobin A1c (4.5-6.0) % Calcium 9.5 (8.4-10.2) mg/dL Total Bilirubin 0.60 (0.2-1.3) mg/dL AST 26 (14-36) U/L ALT 18 (0-35) U/L Alkaline Phosphatase 74 (38-126) U/L Serum Total Protein 7.9 (6.3-8.2) g/dL Albumin 4.4 (3.5-5.0) g/dL Prealbumin (17.6-36.0) mg/dL 07/08/23 07/08/23 07/08/23 Range/Units 04:36 04:36 04:36 WBC (4.0-10.5) x10^3/uL RBC (4.1-5.4) x10^6/uL Hgb (12.0-16.0) g/dL Hct (35-47) % MCV (78-100) fL MCH (26-32) pg MCHC (32-36) g/dL RDW (11.5-14.0) % Plt Count (150-450) x10^3/uL MPV (7.5-11.0) fL Gran % (36.0-66.0) % Immature Gran % (Auto) (0.00-0.4) % Nucleat RBC Rel Count (0.00-0.1) % Eos # (Auto) (0-0.5) x10^3/uL Immature Gran # (Auto) (0.00-0.03) x10^3u/L Absolute Lymphs (auto) (1.0-4.6) x10^3/uL Absolute Monos (auto) (0.0-1.3) x10^3/uL Absolute Nucleated RBC (0.00-0.01) x10^3u/L Lymphocytes % (24.0-44.0) % Monocytes % (0.0-12.0) % Eosinophils % (0.00-5.0) % Basophils % (0.0-0.4) % Absolute Granulocytes (1.4-6.9) x10^3/uL Basophils # (0-0.4) x10^3/uL Sodium 131 L (135-145) mmol/L Potassium 4.1 (3.5-5.1) mmol/L Chloride 101 (98-107) mmol/L Carbon Dioxide 20 L (22-30) mmol/L Anion Gap 15.0 (5-15) MEQ/L BUN 16 (7-17) mg/dL Creatinine 0.79 (0.52-1.04) mg/dL Estimated GFR 74.6 ML/MIN Glucose 163 H (74-106) mg/dL POC Glucometer (74 to 106) mg/dL Hemoglobin A1c 6.86 H (4.5-6.0) % Calcium 9.2 (8.4-10.2) mg/dL Total Bilirubin (0.2-1.3) mg/dL AST (14-36) U/L ALT (0-35) U/L Alkaline Phosphatase (38-126) U/L Serum Total Protein (6.3-8.2) g/dL Albumin (3.5-5.0) g/dL Prealbumin 18.82 (17.6-36.0) mg/dL 07/08/23 07/08/23 Range/Units 07:57 11:48 WBC (4.0-10.5) x10^3/uL RBC (4.1-5.4) x10^6/uL Hgb (12.0-16.0) g/dL Hct (35-47) % MCV (78-100) fL MCH (26-32) pg MCHC (32-36) g/dL RDW (11.5-14.0) % Plt Count (150-450) x10^3/uL MPV (7.5-11.0) fL Gran % (36.0-66.0) % Immature Gran % (Auto) (0.00-0.4) % Nucleat RBC Rel Count (0.00-0.1) % Eos # (Auto) (0-0.5) x10^3/uL Immature Gran # (Auto) (0.00-0.03) x10^3u/L Absolute Lymphs (auto) (1.0-4.6) x10^3/uL Absolute Monos (auto) (0.0-1.3) x10^3/uL Absolute Nucleated RBC (0.00-0.01) x10^3u/L Lymphocytes % (24.0-44.0) % Monocytes % (0.0-12.0) % Eosinophils % (0.00-5.0) % Basophils % (0.0-0.4) % Absolute Granulocytes (1.4-6.9) x10^3/uL Basophils # (0-0.4) x10^3/uL Sodium (135-145) mmol/L Potassium (3.5-5.1) mmol/L Chloride (98-107) mmol/L Carbon Dioxide (22-30) mmol/L Anion Gap (5-15) MEQ/L BUN (7-17) mg/dL Creatinine (0.52-1.04) mg/dL Estimated GFR ML/MIN Glucose (74-106) mg/dL POC Glucometer 151 H 151 H (74 to 106) mg/dL Hemoglobin A1c (4.5-6.0) % Calcium (8.4-10.2) mg/dL Total Bilirubin (0.2-1.3) mg/dL AST (14-36) U/L ALT (0-35) U/L Alkaline Phosphatase (38-126) U/L Serum Total Protein (6.3-8.2) g/dL Albumin (3.5-5.0) g/dL Prealbumin (17.6-36.0) mg/dL Micro Results-Entire Visit: Accuchecks Date 07/08/23 - Radiology Exams Ordered Rad Exams-Entire Visit: Radiology Procedures Category Date Time Status KNEE (1 OR 2 VIEW) Stat Exams 07/08/23 09:15 Completed Discharge Exam General Appearance: no apparent distress Neurologic Exam: alert, oriented x 3, cooperative Eye Exam: PERRL Ears, Nose, Throat Exam: normal ENT inspection Neck Exam: normal inspection Respiratory Exam: normal breath sounds, lungs clear Cardiovascular Exam: regular rate/rhythm, normal heart sounds Gastrointestinal/Abdomen Exam: soft, normal bowel sounds Pelvic Exam: deferred Rectal Exam: deferred Back Exam: normal inspection Extremity Exam: limited range of motion (Right Lower ext), swelling (RLE) Skin Exam: other (abrasion to right forehead Left foot covered with dressing/medihoney bilateral knee abrasions) Wound Assessment: Skin/Wound Assessment Wound/Incision Assessment Start: 07/08/23 00:00 Text: Status: Active Freq: Q6H Protocol: Document 07/08/23 06:00 MP (Rec: 07/08/23 06:23 MP [id number]) Wound/Incision Assessment Right Anterior Head Wound Assessment Admission Wound Type Abrasion Anterior Abdomen Wound Assessment Admission Wound Stage Non Pressure Wound Surrounding Tissue Bright Red,Shiny,Weeping Left Knee Wound Assessment Admission Wound Type Skin Tear Right Knee Wound Assessment Admission Wound Type Skin Tear Wound Stage Non Pressure Wound Wound Photo Photo Taken Yes Final Diagnosis/Problem List - Final Discharge Diagnosis/Problem (1) Supracondylar fracture of femur Current Visit: Yes Status: Acute Code(s): S72.453A - DISPL SUPRCNDL FX W/O INTRCNDL EXTN LOW END UNSP FEMR, INIT (2) Diabetes mellitus Current Visit: Yes Status: Acute Code(s): E11.9 - TYPE 2 DIABETES MELLITUS WITHOUT COMPLICATIONS (3) Afib Current Visit: Yes Status: Acute Code(s): I48.91 - UNSPECIFIED ATRIAL FIBRILLATION (4) CHF (congestive heart failure) Current Visit: Yes Status: Acute Code(s): I50.9 - HEART FAILURE, UNSPECIFIED (5) Fall Current Visit: Yes Status: Acute Code(s): W19.XXXA - UNSPECIFIED FALL, INITIAL ENCOUNTER (6) Hyponatremia Current Visit: Yes Status: Acute Code(s): E87.1 - HYPO-OSMOLALITY AND HYPONATREMIA - Discharge Disposition: Home, Self-Care Condition: Stable Prescriptions: New Nystatin Powder 15 gm [Nystop Powder 15 gm] 1 gm TP BID Acetaminophen 325 mg [Tylenol 325 mg] 650 mg PO Q6H PRN PRN tablet PRN Reason: Pain And/Or Fever Continue Latanoprost 2.5 ml OP DAILY Insulin Glargine,Hum.rec.anlog [Lantus] 22 unit SQ BID Furosemide 40 mg PO BID Gabapentin 300 mg PO DAILY Oxybutynin Chloride [Oxybutynin Chloride ER] 15 mg PO DAILY Sitagliptin Phosphate [Januvia] 100 mg PO DAILY Vit C/E/Zn/Coppr/Lutein/Zeaxan [Preservision Areds 2 Chew Tab] 1 each PO DAILY Cholecalciferol (Vitamin D3) [Vitamin D3] 1,000 unit PO DAILY Magnesium Oxide [Magnesium] 400 mg PO DAILY Multivitamin 1 each PO DAILY Nitroglycerin 0.4 mg SL Q5MIN PRN MR X 3 PRN PRN Reason: Chest Pain Ferrous Sulfate [Slow Fe] 45 mg PO DAILY Calcium Carbonate/Vitamin D3 [Calcium 600 mg-Vit D3 5 Mcg Tb] 1 each PO DAILY [place]-3S/Dha/Epa/Fish Oil [Fish Oil [place]-3 Softgel] 1 cap PO DAILY Cyanocobalamin (Vitamin B-12) [Vitamin B-12] 1,000 mcg PO DAILY Letrozole [Femara] 2.5 mg PO DAILY Duloxetine HCl 30 mg [Cymbalta 30 MG Capsule] 30 mg PO DAILY Potassium Chloride 20 meq PO BID No Action Insulin Lispro [Humalog] 6 unit SQ BID Metformin HCl [Metformin ER Gastric] 1,000 mg PO BID Rivaroxaban [Xarelto] 20 mg PO HS #0 Additional Instructions: Xarelto on Hold pending surgical evaluation Follow up with: JOHN VICENTE [employer] [Primary Care Provider] -
[2023-07-08] MEDS: Lasix 40 MG PO SCH (12:54)
[2023-07-08] MEDS: Ditropan XL 5 MG PO SCH (12:54)
[2023-07-08] MEDS: Klor Con PO SCH (12:54)
[2023-07-08] MEDS: Lantus Insulin SQ SCH (12:54)
[2023-07-08] MEDS: Cymbalta 30 MG Capsule PO SCH (12:54)
[2023-07-08] MEDS: Januvia 50 MG PO SCH (12:54)
[2023-07-08] MEDS: VITAMIN D PO SCH (12:55)
[2023-07-08] MEDS: Ocuvite Tablet PO SCH (12:55)
[2023-07-08] MEDS: Vitamin B-12 500 MCG PO SCH (12:55)
[2023-07-08] MEDS: NEURONTIN PO SCH (12:55)
[2023-07-08 17:30] VITALS: BP 140/60; PULSE 60; TEMP 98.1; O2SAT 93
== END 2023-07-08 17:20 | disposition home or self-care (01) ==
LOC: ED 19:36 → MED SURG 22:24
PROVIDERS: ADMIT Internal Medicine; ATTEND Internal Medicine
DX: S72.451A Displaced supracondylar fracture without intracondylar extension of lower end of right femur, initial encounter for closed fracture (principal); I48.91 Unspecified atrial fibrillation; E11.9 Type 2 diabetes mellitus without complications; I11.0 Hypertensive heart disease with heart failure; W07.XXXA Fall from chair, initial encounter; I50.9 Heart failure, unspecified; E87.1 Hypo-osmolality and hyponatremia; S00.81XA Abrasion of other part of head, initial encounter; S30.811A Abrasion of abdominal wall, initial encounter; S81.012A Laceration without foreign body, left knee, initial encounter; Z79.01 Long term (current) use of anticoagulants; Z79.899 Other long term (current) drug therapy; Z20.828 Contact with and (suspected) exposure to other viral communicable diseases
CPT/HCPCS: 36415; 73560; 80048; 80053; 82947; 83036; 84134; 85025; 85027; 99221; 99284; Q3014; G0378; A9270-GY